=== PATIENT | male | born 1980 | race Caucasian/White ===

== ENCOUNTER 2024-08-29 10:30 | Inpatient (IN) ==
[2024-08-29 12:07] LABS: Basophils # (auto) 0.04 K/uL (0.00-0.20); Basophils % (auto) 0.4 %; Eosinophils % (auto) 1.1 %; Hematocrit (blood only) 43.3 % (42.0-52.0); Hemoglobin 14.7 g/dl (14.0-18.0); Immature Granulocytes # (auto) 0.05 K/uL (0.01-0.20); Immature Granulocytes % (auto) 0.5 %; Lymphocytes # (auto) 1.01 K/uL (1.20-3.40); Lymphocytes % (auto) 10.6 %; Mean Corpuscular Hemoglobin 28.5 pg (25.0-34.0); Mean Corpuscular Hgb Conc 33.9 g/dL (32.0-36.0); Mean Corpuscular Volume 84.1 fL (80.0-100.0); Mean Platelet Volume 9.9 fL (9.4-12.4); Monocytes % (auto) 9.5 %; Neutrophils # (auto) 7.41 K/uL (1.40-6.50); Neutrophils % (auto) 77.9 %; Platelet Count 362 K/uL (130-400); RDW Coefficient of Variation 13.2 % (11.5-14.5); RDW Standard Deviation 40.8 fL (36.4-46.3); Red Blood Count 5.15 M/uL (4.70-6.10); White Blood Count 9.51 K/ul (4.8-10.8)
[2024-08-29 12:28] LABS: Albumin Globulin Ratio 1.3 (0.9-2); Albumin Level 4.2 gm/dl (3.4-5.0); BUN Creatinine Ratio 9.1 (10-20); Bilirubin,Total 0.7 mg/dl (0.2-1.0); Calcium 9.6 mg/dl (8.6-10.3); Creatinine Clr Calc Pharmacy 84.4 ml/min; Globulin 3.2 gm/dl (2.5-4.0); Potassium 3.9 mmol/L (3.5-5.1); Total Protein 7.4 gm/dl (6.0-8.3)
[2024-08-29 12:48] LABS: Appearance Urine Clear (Clear); Bacteria Urine Automated None Seen (None Seen); Bilirubin Urine Negative (Negative); Blood Urine Negative (Negative); Cast Urine Automated 0-2 /lpf (0-2); Color Urine Yellow; Epithelial Cell Urine Auto 0-2 /hpf (0-2); Glucose Urine UA Negative (Negative); Ketones Urine Trace (Negative); Leukocyte Esterase Urine Negative (Negative); Nitrite Urine Negative (Negative); Protein Urine Trace (Negative); RBC Urine Automated 0-2 /hpf (0-2); Specific Gravity Urine 1.019 (1.000-1.030); Urobilinogen Urine Positive (Negative); WBC Urine Automated 0-5 /hpf (0-5)
--- NOTE | 2024-08-29 12:50 | Emergency Department Note ---
Impression & Plan Acute diverticulitis, Pneumoperitoneum ED Provider Note NAME: LAURENCE TELLEZ AGE: 44 SEX: M : 1980 ARRIVES VIA: Walk-In INFORMANT: Patient ED PROVIDER(S): Al Tomas DO CHIEF COMPLAINT: Lower abdominal pain HPI: Patient is a 44-year-old male who presents to the ER for lower abdominal pain. He notes this started this past Wednesday. Pain is worse with any kind of movement. He does have nausea. Denies any vomiting or diarrhea. He has pain when he pushes to urinate but otherwise no dysuria, urgency, or frequency. No previous abdominal surgeries. He has never had this before. Denies any headache or change in vision. No chest pain or shortness of breath. No fevers. ADDITIONAL HISTORY OBTAINED: Per HPI Chronic Medical/Social Conditions Affecting Care: Per HPI PAST MEDICAL HISTORY:See Below PAST SURGICAL HISTORY:See Below FAMILY HISTORY:See Below SOCIAL HISTORY:See Below HOME MEDICATIONS:See Below ALLERGIES:See Below VITALS:See Below PHYSICAL EXAMINATION: GENERAL: Sitting up in bed, alert, well appearing, well nourished, no distress, non-toxic EYE EXAM: normal conjunctiva. PERRL and EOM's grossly intact. OROPHARYNX: no exudate, no erythema, lips, buccal mucosa, and tongue normal and mucous membranes are moist NECK: supple, no nuchal rigidity, no adenopathy, non-tender LUNGS: Clear to auscultation. Normal chest wall mechanics HEART: no murmurs, S1 normal and S2 normal ABDOMEN: abdomen soft, tender palpation right lower quadrant, normo-active bowel sounds, no masses, no rebound or guarding. UPPER EXTREMITIES: upper extremities are grossly normal. LOWER EXTREMITIES: No pitting edema. NEURO EXAM: Normal sensorium, cranial nerves II-XII grossly intact, normal speech, no gross weakness of arms, no gross weakness of legs. No drift. Finger to nose intact. Gross sensation intact. MEDICAL DECISION MAKING: Patient is a 44-year-old male who presents ER for above-stated complaint. IV was established and blood work was obtained. Labs show no significant leukocytosis or anemia. BMP along with LFTs bilirubin lipase was unremarkable. UA was clean. CT abdomen pelvis showed diverticulitis with pneumoperitoneum and a stone in the cystic duct. Patient was given IV Zosyn fluids morphine and Toradol. He was updated bedside. Discussed with Libia from general surgery and she recommended admission to the hospitalist. Discussed with the hospitalist for further evaluation management treatment. Consults/Care Managements Discussions: Per MDM Triage Nursing notes reviewed. Limited review of prior medical records performed Vital Signs: reviewed and remarkable for no significant abnormalities Differential diagnosis: Differential diagnoses includes but is not limited to gastritis, peptic ulcer disease, GERD, gallbladder disease, pancreatitis, small bowel obstruction, appendicitis, diverticulitis, hernia, urinary tract infection, torsion, perforation, trauma, infectious. ER treatment provided: See below Diagnostics interpreted by me include EKG and cardiac monitoring as listed below: -Cardiac Monitoring: An order was placed for continuous cardiac monitoring. The monitor shows a rate of 97 with sinus rhythm. -ECG: none -Laboratory studies:Interpreted by me as stated above in MDM and shown below. Imaging studies: Xrays: As interpreted by me:none CTs show: CT abdomen pelvis shows inflammation in the lower pelvis per my preliminary interpretation CT of the pelvis per radiology as described above Procedures:none Critical Care: None Past Med/Surg History Problem List (Updated 08/29/24 @ 18:50 by Al Tomas DO) Pneumoperitoneum (Acute) Right nephrolithiasis Cystic duct calculus Diverticulitis of colon with perforation Acute diverticulitis (Acute) Medical History Hypertension Social History Smoking Status: Never smoker Preferred Language: Armenian Feels Safe at Home: Yes Allergies Allergies Allergy/AdvReac Type Severity Reaction Status Date / Time No Known Allergies AdvReac Unknown Verified 12/11/20 23:52 Home Meds Home Medications Medication Instructions Recorded Confirmed Lactobacillus acidophilus 10 10,000 mmu cells PO DAILY 12/11/20 08/29/24 billion cell capsule (Probiotic) aspirin 325 mg tablet,delayed 325 mg PO DAILY PRN Pain 12/11/20 08/29/24 release cholecalciferol (vitamin D3) 25 1,000 unit PO DAILY 12/11/20 08/29/24 mcg (1,000 unit) capsule (Vitamin D3) omeprazole magnesium 20 mg 20 mg PO DAILY 12/11/20 08/29/24 tablet,delayed release (Prilosec OTC) hydrochlorothiazide 25 mg tablet 25 mg PO DAILY 08/29/24 08/29/24 losartan 100 mg tablet 100 mg PO DAILY 08/29/24 08/29/24 metoprolol succinate 25 mg 25 mg PO DAILY 08/29/24 08/29/24 tablet,extended release 24 hr Results & Data (ED) Vital Signs Vital Signs - 24 hr 08/29/24 10:37 08/29/24 13:02 Temperature 37.0 C Temperature Source Temporal Artery Scan Pulse Rate 80 73 Respiratory Rate 18 16 Respiratory Effort / Characteristics Non-Labored Spontaneous Respiratory Depth Normal Blood Pressure 151/91 H 148/82 H Blood Pressure Mean 111 104 Pulse Oximetry 98 95 Oxygen Delivery Method Room Air Room Air Sepsis Recent Fever Within 48 Hours No Sepsis New/Unexplained Change in Mental Status N/A Sepsis Action Taken by Nursing No Action Required Laboratory Data 08/29/24 11:13 08/29/24 11:13 Lab Results 08/29/24 08/29/24 Range/Units 11:13 12:17 WBC 9.51 (4.8-10.8) K/ul RBC 5.15 (4.70-6.10) M/uL Hgb 14.7 (14.0-18.0) g/dl Hct 43.3 (42.0-52.0) % MCV 84.1 (80.0-100.0) fL MCH 28.5 (25.0-34.0) pg MCHC 33.9 (32.0-36.0) g/dL RDW Std Deviation 40.8 (36.4-46.3) fL RDW Coeff of Gomez 13.2 (11.5-14.5) % Plt Count 362 (130-400) K/uL MPV 9.9 (9.4-12.4) fL Immature Gran % (Auto) 0.5 % Neut % (Auto) 77.9 % Lymph % (Auto) 10.6 % [place] % (Auto) 9.5 % Eos % (Auto) 1.1 % Baso % (Auto) 0.4 % Neut # (Auto) 7.41 H (1.40-6.50) K/uL Lymph # (Auto) 1.01 L (1.20-3.40) K/uL [place] # (Auto) 0.90 H (0.11-0.59) K/uL Eos # (Auto) 0.10 (0.00-0.50) K/uL Baso # (Auto) 0.04 (0.00-0.20) K/uL Immature Gran # (Auto) 0.05 (0.01-0.20) K/uL Sodium 136 (136-145) mmol/L Potassium 3.9 (3.5-5.1) mmol/L Chloride 99 (98-107) mmol/L Carbon Dioxide 30 (21-32) mmol/L Anion Gap 7 (3-11) BUN 10 (6-23) mg/dl Creatinine 1.10 (0.6-1.4) mg/dl Est Cr Clr Drug Dosing 84.4 ml/min eGFR 85.42 BUN/Creatinine Ratio 9.1 L (10-20) Glucose 99 (70-99(Fasting)) mg/dl Calcium 9.6 (8.6-10.3) mg/dl Total Bilirubin 0.7 (0.2-1.0) mg/dl AST 13 (13-39) U/L ALT 21 (7-52) U/L Alkaline Phosphatase 66 (34-104) U/L Total Protein 7.4 (6.0-8.3) gm/dl Albumin 4.2 (3.4-5.0) gm/dl Globulin 3.2 (2.5-4.0) gm/dl Albumin/Globulin Ratio 1.3 (0.9-2) Lipase 18 (11-82) U/L Urine Color Yellow Urine Appearance Clear (Clear) Urine pH 6.0 (4.5-7.5) Ur Specific Owen 1.019 (1.000-1.030) Urine Protein Trace H (Negative) Urine Glucose (UA) Negative (Negative) Urine Ketones Trace H (Negative) Urine Blood Negative (Negative) Urine Nitrite Negative (Negative) Urine Bilirubin Negative (Negative) Urine Urobilinogen Positive H (Negative) Ur Leukocyte Esterase Negative (Negative) Urine WBC (Auto) 0-5 (0-5) /hpf Urine RBC (Auto) 0-2 (0-2) /hpf U Hyaline Cast (Auto) 0-2 (0-2) /lpf U Epithel Cells (Auto) 0-2 (0-2) /hpf Urine Bacteria (Auto) None Seen (None Seen) Administered Medications Dextrose/Lactated Ringer's (D5w And Lactated Ringers) 1,000 mls @ 80 mls/hr IV .[id number] KEITH Stop: 08/30/24 18:08 Last Admin: 08/29/24 18:41 Dose: 80 mls/hr Documented By: FREDY Discontinued Medications Sodium Chloride (Nss) 1,000 mls @ 999 mls/hr IV .[id number] ONE Stop: 08/29/24 13:47 Last Infusion: 08/29/24 14:01 Dose: Infused Documented By: Admin: 08/29/24 12:56 Dose: 999 mls/hr Documented By: ANT Piperacillin Sod/Tazobactam Sod (Zosyn) 4.5 gm in 100 mls @ 200 mls/hr IV NOW ONE; Protocol Stop: 08/29/24 14:46 Last Infusion: 08/29/24 15:55 Dose: Infused Documented By: Admin: 08/29/24 14:30 Dose: 200 mls/hr Documented By: DINORA Ioversol (Optiray 320 100ml) 94 ml IV ONCE ONE Stop: 08/29/24 13:39 Last Admin: 08/29/24 13:39 Dose: 94 ml Documented By: IZZY Ketorolac Tromethamine (Ketorolac Tromethamine 15 Mg/Ml Vial) 10 mg IV NOW ONE Stop: 08/29/24 12:48 Last Admin: 08/29/24 12:56 Dose: 10 mg Documented By: ANT Morphine Sulfate (Morphine Sulfate 4 Mg/Ml 1 Ml Carp\Vial) 4 mg IV NOW STA Stop: 08/29/24 14:18 Last Admin: 08/29/24 14:50 Dose: Not Given Documented By: ANT Morphine Sulfate (Morphine Sulfate 4 Mg/Ml 1 Ml Carp\Vial) 4 mg IV NOW STA Stop: 08/29/24 15:24 Last Admin: 08/29/24 15:52 Dose: 4 mg Documented By: FREDY Ondansetron HCl (Ondansetron Inj 2 Mg/Ml 2 Ml Vial) 4 mg IV NOW STA Stop: 08/29/24 12:48 Last Admin: 08/29/24 12:56 Dose: 4 mg Documented By: JORJE Imaging Data Radiologist's Impression: Abdomen/Pelvis CT 08/29/24 12:[address] WITH IV CONTRAST CT DOSE: 925.75 mGy.cm HISTORY: Acute nausea with right lower quadrant abdominal pain rlq abd pain TECHNIQUE: Multiaxial CT images of the abdomen and pelvis were performed following the IV administration of 94 cc of Optiray, A dose lowering technique was utilized adhering to the principles of ALARA. COMPARISON STUDY: None. FINDINGS: Mild bibasilar atelectasis. Unremarkable spleen, pancreas and left adrenal gland. Indeterminate 1.5 cm soft tissue attenuating focus of right adrenal gland nodular thickening on image 70 series 3, favored to be benign. There is mild gallbladder wall thickening without significant distention. Trace pericholecystic stranding. There is a 3 mm stone within the cystic duct on image 79 series 3. No choledocholithiasis or significant biliary ductal dilation identified. Unremarkable liver. Subcentimeter hypodense focus of the left hepatic lobe on image 49 series 3 is too small to characterize, likely benign. Patent portal vein. Mild nonspecific bilateral perinephric stranding with pelvocaliectasis which is generally symmetric. There are a few scattered bilateral renal cysts. 4 mm nonobstructing calculus of the interpolar right kidney. No ureteral calculi. Decompressed bladder with wall thickening. Borderline enlarged prostate. Aorta and IVC are unremarkable. No lymphadenopathy. No bowel obstruction. Colonic diverticulosis. There is moderate wall thickening of the mid sigmoid with adjacent inflammatory stranding and a cluster of pneumoperitoneum within the sigmoid mesocolon on image 257 series 3. No discrete abscess identified. Mild wall thickening is noted involving a few loops of adjacent nondilated ileum which is likely reactive. Normal appendix. No acute fracture. IMPRESSION: 1. Acute sigmoid diverticulitis with microperforation manifested by clustered pneumoperitoneum within the adjacent sigmoid mesocolon. No upper abdominal pneumoperitoneum. 2. No bowel obstruction or abscess. 3. 3 mm stone within the cystic duct is noted along with mild gallbladder wall thickening. Finding should be correlated clinically to exclude developing acute cholecystitis. 4. Normal appendix. 5. Right nephrolithiasis. ACT 112: Negative or not required by law. The above report was generated using voice recognition software. It may contain grammatical, syntax or spelling errors. Electronically signed by: Teddy Griffin M.D. 08/29/2024 1:59 PM Discharge Plan Visit Data Chief Complaint: Abdominal Pain Stated Complaint: LOWER ABD PAIN ED Provider: Al Tomas Discharge Problem: Acute diverticulitis, Pneumoperitoneum Patient Disposition: Admitted As Inpatient Discharge Instructions Interventions: ED Discharge Assessment Last Done: 08/29/24 17:24
[2024-08-29] MEDS: SODIUM CHLORIDE 0.9% 1,000 ML IV ONE (12:56)
[2024-08-29] MEDS: KETOROLAC TROMETHAMINE 15 MG/ML VIAL IV ONE (12:56)
[2024-08-29] MEDS: ONDANSETRON INJ 2 MG/ML 2 ML VIAL IV STA (12:56)
[2024-08-29] MEDS: OPTIRAY 320 100ml IV ONE (13:39)
--- NOTE | 2024-08-29 14:00 | CT Scan Report ---
ABDOMEN AND PELVIS CT WITH IV CONTRAST CT DOSE: 925.75 mGy.cm HISTORY: Acute nausea with right lower quadrant abdominal pain rlq abd pain TECHNIQUE: Multiaxial CT images of the abdomen and pelvis were performed following the IV administrat ion of 94 cc of Optiray, A dose lowering technique was utilized adhering to the principles of ALARA. COMPARISON STUDY: None. FINDINGS: Mild bibasilar atelectasis. Unremarkable spleen, pancreas and left adrenal gland. Indetermi [place] 1.5 cm soft tissue attenuating focus of right adrenal gland nodular thickening on image 70 serie s 3, favored to be benign. There is mild gallbladder wall thickening without significant distention. Trace pericholecystic stranding. There is a 3 mm stone within the cystic duct on image 79 series 3. N o choledocholithiasis or significant biliary ductal dilation identified. Unremarkable liver. Subcenti meter hypodense focus of the left hepatic lobe on image 49 series 3 is too small to characterize, lik romeo benign. Patent portal vein. Mild nonspecific bilateral perinephric stranding with pelvocaliectasis which is generally symmetric. There are a few scattered bilateral renal cysts. 4 mm nonobstructing calculus of the interpolar right kidney. No ureteral calculi. Decompressed bladder with wall thickening. Borderline enlarged prostate . Aorta and IVC are unremarkable. No lymphadenopathy. No bowel obstruction. Colonic diverticulosis. The re is moderate wall thickening of the mid sigmoid with adjacent inflammatory stranding and a cluster of pneumoperitoneum within the sigmoid mesocolon on image 257 series 3. No discrete abscess identifie d. Mild wall thickening is noted involving a few loops of adjacent nondilated ileum which is likely r eactive. Normal appendix. No acute fracture. IMPRESSION: 1. Acute sigmoid diverticulitis with microperforation manifested by clustered pneumoperitoneum within the adjacent sigmoid mesocolon. No upper abdominal pneumoperitoneum. 2. No bowel obstruction or abscess. 3. 3 mm stone within the cystic duct is noted along with mild gallbladder wall thickening. Finding sh ould be correlated clinically to exclude developing acute cholecystitis. 4. Normal appendix. 5. Right nephrolithiasis. ACT 112: Negative or not required by law. The above report was generated using voice recognition software. It may contain grammatical, syntax o r spelling errors. Electronically signed by: Teddy Griffin M.D. 08/29/2024 1:59 PM
[2024-08-29] MEDS: PIPERACILLIN/TAZOBACTAM 4.5 GM/100 ML BAG IV ONE (14:30)
[2024-08-29] MEDS: MoRPHine SULFATE 4 MG/ML 1 ML CARP\\VIAL IV STA ×2 (14:50→15:52)
--- NOTE | 2024-08-29 15:24 | Surgery Consultation ---
Date of Consultation August 29, 2024 Assessment & Plan (1) Acute diverticulitis: This is a 44yM with a PMH of HTN who presents to the [facility] ED on 08/29/24 with complaints of lower abdominal pain since Wednesday associated with nausea and chills. As his pain has been ongoing he presented to the ER for further kimmy luation. A CT a/p was obtained that revealed findings concerning for acute sigmoid diverticulitis with microperforation manifested by clustered pneumoperitoneum within the adjacent sigmoid mesocolon, without abscess or bowel obstruction. He also has a 3mm stone within the cystic duct is noted along with mild gallbladder wall thickening. He has never had surgery on the abdomen nor a colonoscopy. Labs show a WBC 9.5, Hbg 14.7, K 3.9, Cr 1.1, with normal LFT markers. Vital signs are stable with HRs 70-80s, stable blood pressures, and afebrile. On exam abdomen is distended with tenderness to palpation across the bilateral lower abdomen, worse in the supra-pubic region with some voluntary guarding. He has no RUQ pain currently. Given reassuring WBC and vitals we will give patient a trial of supportive care with IVF, bowel rest, and start IV abx. Discussed should patient worsen we could consider repeat CT scan to evaluate for developing abscess. He is understanding surgical intervention if it came to it would likely involve a temporary colostomy. Patient agreeable with plan for conservative measures, hospitalist planning on admitting, we will follow closely. History of Present Illness History of Present Illness This is a 44yM with a PMH of HTN who presents to the [facility] ED on 08/29/24 with complaints of abdominal pain. His pain started Wednesday and has not improved prompting him to come in. It is located in the lower midline. He thought maybe this initially was a kidney stone, because he has had them in the past, but this presented with back pain which this episode is no associated with. His pain at it's worst is a 7-8/10 associated with nausea and chills. As his pain has been ongoing he presented to the ER for further evaluation. A CT a/p was obtained that revealed findings concerning for acute sigmoid diverticulitis with microperforation manifested by clustered pneumoperitoneum within the adjacent sigmoid mesocolon, without abscess or bowel obstruction. He also has a 3mm stone within the cystic duct is noted along with mild gallbladder wall thickening. The patient denies any history of diverticulitis in the past. He says his mom has had issues and bowel issues similar to this, but no history of colon cancer. He has never had surgery on the abdomen nor a colonoscopy. Patient reports a soft BM yesterday without blood. No urinary complaints. No vomiting, chest pain, SOB. He had some gatorade prior to coming in. Allergies Allergy/AdvReac Type Severity Reaction Status Date / Time No Known Allergies AdvReac Unknown Verified 12/11/20 23:52 Home Medications Medication Instructions Recorded Confirmed Type Lactobacillus acidophilus 10 10,000 mmu cells PO DAILY 12/11/20 08/29/24 History billion cell capsule (Probiotic) aspirin 325 mg tablet,delayed 325 mg PO DAILY PRN Pain 12/11/20 08/29/24 History release cholecalciferol (vitamin D3) 25 1,000 unit PO DAILY 12/11/20 08/29/24 History mcg (1,000 unit) capsule (Vitamin D3) omeprazole magnesium 20 mg 20 mg PO DAILY 12/11/20 08/29/24 History tablet,delayed release (Prilosec OTC) hydrochlorothiazide 25 mg tablet 25 mg PO DAILY 08/29/24 08/29/24 History losartan 100 mg tablet 100 mg PO DAILY 08/29/24 08/29/24 History metoprolol succinate 25 mg 25 mg PO DAILY 08/29/24 08/29/24 History tablet,extended release 24 hr Patient History Medical History Hypertension Social History Smoking Status: Never smoker Preferred Language: Tamaz[place] Feels Safe at Home: Yes Review of Systems Constitutional: + chills; no fever Respiratory: no cough Cardiovascular: no chest pain Gastrointestinal: + abdominal pain (supra pubic ), + bloat ing and + nausea; no vomiting and no blood in stools Physical Exam Physical Exam: awake/alert Constitutional: well developed and well nourished Respiratory: normal respiratory effort Gastrointestinal (Abdomen): Inspection/Auscultation: + abdomen distended Percussion/Palpation: + abdomen tender (tender to palpation in the b/l lower abd worse in the lilli-pubic region) and + guarding (voluntary guarding ) Results & Data Vital Signs (Past 12 Hours) Vital Signs Temp Pulse Resp BP Pulse Ox O2 Del Method 08/29/24 13:02 73 16 148/82 H 95 Room Air 08/29/24 10:37 98.6 F 80 18 151/91 H 98 Room Air Diagnostic Findings ABDOMEN AND PELVIS CT WITH IV CONTRAST CT DOSE: 925.75 mGy.cm HISTORY: Acute nausea with right lower quadrant abdominal pain rlq abd pain TECHNIQUE: Multiaxial CT images of the abdomen and pelvis were performed following the IV administration of 94 cc of Optiray, A dose lowering technique was utilized adhering to the principles of ALARA. COMPARISON STUDY: None. FINDINGS: Mild bibasilar atelectasis. Unremarkable spleen, pancreas and left adr enal gland. Indeterminate 1.5 cm soft tissue attenuating focus of right adrenal gland nodular thickening on image 70 series 3, favored to be benign. There is mild gallbladder wall thickening without significant distention. Trace pericholecystic stranding. There is a 3 mm stone within the cystic duct on image 79 series 3. No choledocholithiasis or significant biliary ductal dilation identified. Unremarkable liver. Subcentimeter hypodense focus of the left hepatic lobe on image 49 series 3 is too small to characterize, likely benign. Patent portal vein. Mild nonspecific bilateral perinephric stranding with pelvocaliectasis which is generally symmetric. There are a few scattered bilateral renal cysts. 4 mm nonobstructing calculus of the interpolar right kidney. No ureteral calculi. Decompressed bladder with wall thickening. Borderline enlarged prostate. Aorta and IVC are unremarkable. No lymphadenopathy. No bowel obstruction. Colonic diverticulosis. There is moderate wall thickening of the mid sigmoid with adjacent inflammatory stranding and a cluster of pneumoperitoneum within the sigmoid mesocolon on image 257 series 3. No discrete abscess identified. Mild wall thickening is noted involving a few loops of adjacent nondilated ileum which is likely reactive. Normal appendix. No acute fracture. IMPRESSION: 1. Acute sigmoid diverticulitis with microperforation manifested by clustered pneumoperitoneum within the adjacent sigmoid mesocolon. No upper abdominal pneumoperitoneum. 2. No bowel obstruction or abscess. 3. 3 mm stone within the cystic duct is noted along with mild gallbladder wall thickening. Finding should be correlated clinically to exclude developing acute cholecystitis. 4. Normal appendix. 5. Right nephrolithiasis. ACT 112: Negative or not required by law. The above report was generated using voice recognition software. It may contain grammatical, syntax or spelling errors. Electronically signed by: Teddy Griffin M.D. 08/29/2024 1:59 PM PG Care Time/CCT Total # of Minutes Spent Total Time Spent with Patient: Total time spent is greater than 50% in coordination of care (as documented) at patient's floor/unit and/or counseling patient: Coding Level of Care Code 38726 IN/OBS CONSULT LVL 3,45M Diagnoses Acute diverticulitis K57.92
--- NOTE | 2024-08-29 15:35 | History & Physical Report ---
Date of Service August 29, 2024 Assessment & Plan (1) Diverticulitis of colon with perforation: (2) Cystic duct calculus: (3) Right nephrolithiasis: (4) Hypertension: Plan Patient is a 44-year-old gentleman presents with acute sigmoid diverticulitis with microperforation. Patient is at high risk for further decompensation and worsening of his condition without hospital level care and interventions. Patient requires IV fluids, antibiotics and surgical consultation Admit to the MedSurg unit Continue IV fluids IV antibiotics Surgical consultation Continue home outpatient medications as ordered Continue to monitor symptoms related to cystic duct stone, he may pass on his. History of Present Illness Chief Complaint: Abdominal pain Primary Care Provider: Art Baum MD Patient is a 44-year-old gentleman with previous history of diverticulosis and kidney stones. Presents to the emergency room with abdominal pain for the past 3 to 4 days. In the emergency room imaging was remarkable for diverticulitis with microperforation. Patient was referred to our service for further evaluation. Time my evaluation patient states he is starting to feel uncomfortable has not requested pain medicines prior to now but would appreciate some. He he states that he started noticing a sort of a more dull and aching abdominal pain on Wednesday. This is different than his usual pain he is experienced with kidney stones in the past. Seem to kind of progress throughout the weekend and into Wednesday prompting him to seek attention today. Denies any fever or chills. No chest pain or shortness of breath. No nausea or vomiting. No bloody stools. No changes in his bladder habits. No swelling of hands arms legs or feet. He states that he has never had a colonoscopy. However, he was told he has diverticulosis based on previous CT of his abdomen. He is compliant with his blood pressure medications. Does not smoke. Rarely uses alcohol. States his mother has a history of diverticulosis and diverticulitis. Allergies Allergy/AdvReac Type Severity Reaction Status Date / Time No Known Allergies AdvReac Unknown Verified 12/11/20 23:52 Home Medications Medication Instructions Recorded Confirmed Type Lactobacillus acidophilus 10 10,000 mmu cells PO DAILY 12/11/20 08/29/24 History billion cell capsule (Probiotic) aspirin 325 mg tablet,delayed 325 mg PO DAILY PRN Pain 12/11/20 08/29/24 History release cholecalciferol (vitamin D3) 25 1,000 unit PO DAILY 12/11/20 08/29/24 History mcg (1,000 unit) capsule (Vitamin D3) omeprazole magnesium 20 mg 20 mg PO DAILY 12/11/20 08/29/24 History tablet,delayed release (Prilosec OTC) hydrochlorothiazide 25 mg tablet 25 mg PO DAILY 08/29/24 08/29/24 History losartan 100 mg tablet 100 mg PO DAILY 08/29/24 08/29/24 History metoprolol succinate 25 mg 25 mg PO DAILY 08/29/24 08/29/24 History tablet,extended release 24 hr Past Med/Surg History Problem List (Updated 08/29/24 @ 15:34 by Derik Diaz DO) Right nephrolithiasis Cystic duct calculus Diverticulitis of colon with perforation Acute diverticulitis Medical History Hypertension Social History Smoking Status: Never smoker Preferred Language: Spanish Feels Safe at Home: Yes Review of Systems Review of Systems: Pertinent positive and negative review of systems as mentioned in the HPI Physical Exam Physical Exam: Constitutional: Alert, ill in appearance, nontoxic HEENT: Mucous membranes moist. Sclera clear Neck: Soft, no adenopathy Lungs: Clear to auscultation, decreased, no wheezes rales or rhonchi CV: S1-S2, regular Abdomen: Firm, diffuse tenderness left lower quadrant the greatest tenderness with some guarding, some rebound Extremities: No significant edema Musculoskeletal: No significant joint tenderness Neuro: No focal deficits Psych: Cooperative, normal mood Results & Data Results & Data Vital Signs (Past 12 Hours) Vital Signs Temp Pulse Resp BP Pulse Ox O2 Del Method 08/29/24 13:02 73 16 148/82 H 95 Room Air 08/29/24 10:37 37.0 C 80 18 151/91 H 98 Room Air Diagnostic Findings Reviewed imaging, laboratory and diagnostic studies. Pertinent findings as below. CBC within normal ranges Electrolytes within normal ranges Creatinine 1.1 LFTs are within normal ranges Urinalysis unremarkable CT of the abdomen and pelvis shows acute sigmoid diverticulitis with microperforation and some clustered pneumoperitoneum, no definitive abscess, 3 mm stone in the cystic duct, Right nephrolithiasis
[2024-08-29] MEDS ORDERED: ALUMINUM/MAGNESIUM SUSP 30 ML UDC PO PRN (18:09)
[2024-08-29] MEDS: D5W AND LACTATED RINGERS 1,000 ML IV SCH (18:41)
[2024-08-29] MEDS: PIPERACILLIN/TAZOBACTAM 4.5 GM/100 ML BAG IV SCH (20:31)
[2024-08-29] MEDS: ACETAMINOPHEN 325 MG TAB PO PRN (20:40)
[2024-08-29] MEDS: IBUPROFEN 600 MG TAB PO PRN (21:44)
[2024-08-30 07:18] LABS: Albumin Level 3.5 gm/dl (3.4-5.0); BUN Creatinine Ratio 10.5 (10-20); Bilirubin Direct 0.7 mg/dl (0-0.2); Bilirubin,Total 1.9 mg/dl (0.2-1.0); Calcium 8.9 mg/dl (8.6-10.3); Creatinine Clr Calc Pharmacy 81.4 ml/min; Magnesium 1.9 mg/dl (1.7-2.4); Potassium 4.2 mmol/L (3.5-5.1); Total Protein 6.3 gm/dl (6.0-8.3)
[2024-08-30] MEDS: PANTOprazole 40 MG TAB PO SCH (08:19)
[2024-08-30] MEDS: ADVANCED PROBIOTIC 625 MG CAPSULE PO SCH (08:19)
[2024-08-30] MEDS: LOSARTAN POTASSIUM 50 MG TAB PO SCH (08:19)
[2024-08-30] MEDS: METOPROLOL SUCC 25MG EXT REL TAB PO SCH (08:20)
[2024-08-30 09:03] LABS: Hematocrit (blood only) 39.6 % (42.0-52.0); Hemoglobin 13.6 g/dl (14.0-18.0); Mean Corpuscular Hemoglobin 28.9 pg (25.0-34.0); Mean Corpuscular Hgb Conc 34.3 g/dL (32.0-36.0); Mean Corpuscular Volume 84.1 fL (80.0-100.0); Mean Platelet Volume 9.8 fL (9.4-12.4); Platelet Count 305 K/uL (130-400); RDW Coefficient of Variation 13.2 % (11.5-14.5); Red Blood Count 4.71 M/uL (4.70-6.10); White Blood Count 13.67 K/ul (4.8-10.8)
[2024-08-30 09:33] LABS: Basophils # (auto) 0.05 K/uL (0.00-0.20); Basophils % (auto) 0.4 %; Eosinophils # (auto) 0.02 K/uL (0.00-0.50); Eosinophils % (auto) 0.1 %; Immature Granulocytes % (auto) 0.7 %; Lymphocytes # (auto) 0.27 K/uL (1.20-3.40); Monocytes # (auto) 0.55 K/uL (0.11-0.59); Neutrophils # (auto) 12.68 K/uL (1.40-6.50); Neutrophils % (auto) 92.8 %
--- NOTE | 2024-08-30 10:23 | Surgery Progress Note ---
Date of Service August 30, 2024 Assessment & Plan (1) Diverticulitis of colon with perforation: Plan: No urgent or emergent indication for surgical intervention He did have fevers and his white count went up slightly but this is not unexpected. Clinically he is slightly improved Continue n.p.o./IV fluids/supportive care Recheck WBC tomorrow Will continue to follow along closely Admission and Anticipated Discharge Date Admission Date: August 29, 2024 Subjective Patient seen. Yesterday afternoon and evening he was feeling rather poorly but this morning he is seeing some improvement. He states that he has felt better ever since his fever broke. No pain if he is not moving. Physical Exam Constitutional: WD/WN, vitals as above no acute distress and not ill appearing Eyes: PERRL, conjunctivae normal, anicteric sclerae EOM intact bilaterally ENMT: external ear and nose normal, oropharynx normal Ears: no hearing impairment Neck: trachea midline, no thyromegaly Respiratory: normal respiratory effort; no respiratory distress and does not use accessory muscles Cardiovascular: Rate/Rhythm: regular rate and regular rhythm Gastrointestinal (Abdomen): Soft. Positive tenderness primarily in the suprapubic and left lower quadrant regions. Skin: no rashes, warm and dry Psychiatric: Orientation: alert, oriented x 3 and cooperative Results & Data Vital Signs (Past 12 Hours) Vital Signs Temp Pulse Resp BP Pulse Ox O2 Del Method 08/30/24 08:00 80 15 114/68 96 Room Air 08/30/24 05:39 37.3 C 84 16 132/76 96 Room Air 08/30/24 01:00 82 16 101/68 96 Room Air 08/29/24 23:00 75 16 114/61 94 Room Air 08/29/24 22:49 37.7 C H PG Care Time/CCT Total # of Minutes Spent Total Time Spent with Patient: Total time spent is greater than 50% in coordination of care (as documented) at patient's floor/unit and/or counseling patient: Coding Level of Care Code 60389 SUB INP/OBS CARE 235MIN Diagnoses Diverticulitis of colon with perforation K57.20
--- NOTE | 2024-08-30 13:53 | Hospitalist Progress Note ---
Date of Service August 30, 2024 Assessment & Plan (1) Diverticulitis of colon with perforation: (2) Cystic duct calculus: (3) Right nephrolithiasis: (4) Hypertension: Plan Patient with acute diverticulitis with microperforation. Seems to be improving, not surprising WBC slightly increased. Will continue to monitor Continue Zosyn Continue n.p.o. with ice chips and sips with meds only Monitor laboratory studies Surgery evaluation and recommendations noted at bedside updated as well. Admission and Anticipated Discharge Date Admission Date: August 29, 2024 Subjective Patient had fever overnight. Now feeling improved did not need any more morphine. Feels some increased pain when he has to urinate. Is passing flatus Physical Exam Physical Exam: Constitutional: Alert, nontoxic HEENT: Mucous membranes moist. Lungs: Clear to auscultation, decreased, no wheezes rales or rhonchi CV: S1-S2, regular Abdomen: Firm, slightly distended, hypoactive bowel sounds, diffuse tenderness more significant in the left lower quadrant with some guarding Extremities: No significant edema Neuro: No focal deficits Psych: Cooperative, normal mood Results & Data Results & Data Vital Signs (Past 12 Hours) Vital Signs Temp Pulse Resp BP Pulse Ox O2 Del Method 08/30/24 12:01 37 C 75 18 123/78 97 Room Air 08/30/24 08:00 80 15 114/68 96 Room Air 08/30/24 05:39 37.3 C 84 16 132/76 96 Room Air Diagnostic Findings Reviewed imaging, laboratory and diagnostic studies. Pertinent findings as below. WBCs 13.6, slightly increased Electrolytes stable
[2024-08-31 06:54] LABS: Basophils # (auto) 0.02 K/uL (0.00-0.20); Basophils % (auto) 0.3 %; Eosinophils # (auto) 0.03 K/uL (0.00-0.50); Eosinophils % (auto) 0.4 %; Hematocrit (blood only) 39.6 % (42.0-52.0); Hemoglobin 13.6 g/dl (14.0-18.0); Immature Granulocytes # (auto) 0.05 K/uL (0.01-0.20); Immature Granulocytes % (auto) 0.6 %; Lymphocytes # (auto) 0.57 K/uL (1.20-3.40); Lymphocytes % (auto) 7.2 %; Mean Corpuscular Hemoglobin 28.6 pg (25.0-34.0); Mean Corpuscular Hgb Conc 34.3 g/dL (32.0-36.0); Mean Corpuscular Volume 83.4 fL (80.0-100.0); Mean Platelet Volume 9.4 fL (9.4-12.4); Monocytes % (auto) 8.9 %; Neutrophils # (auto) 6.52 K/uL (1.40-6.50); Neutrophils % (auto) 82.6 %; Platelet Count 279 K/uL (130-400); RDW Coefficient of Variation 13.2 % (11.5-14.5); RDW Standard Deviation 39.9 fL (36.4-46.3); Red Blood Count 4.75 M/uL (4.70-6.10); White Blood Count 7.89 K/ul (4.8-10.8)
[2024-08-31 07:15] LABS: Albumin Level 3.3 gm/dl (3.4-5.0); BUN Creatinine Ratio 13.9 (10-20); Bilirubin Direct 0.5 mg/dl (0-0.2); Bilirubin,Total 1.3 mg/dl (0.2-1.0); Calcium 8.7 mg/dl (8.6-10.3); Total Protein 6.3 gm/dl (6.0-8.3)
--- NOTE | 2024-08-31 09:31 | Surgery Progress Note ---
Date of Service August 31, 2024 Assessment & Plan (1) Diverticulitis of colon with perforation: Plan: VSS wbc wnl Continue IV antibiotics Keep NPO with ice chips only for another day T.Bili down trending 1.3 (1.9) Pt seen and examined with Dr. Roa Will follow as above. continues to slowly improve. still some pain with full bladder continue IV antibiotics rec stay on just ice chips another day. possible advance to clears tomorrow no urgent indication for surgical intervention (2) Total bilirubin, elevated: Admission and Anticipated Discharge Date Admission Date: August 29, 2024 Subjective event of increased pain overnight prior to voiding then pain subsided after urination Denies air bubbles in urine stream no n/v, f/v Review of Systems Constitutional: no fever and no chills Respiratory: no dyspnea Cardiovascular: no chest pain Gastrointestinal: + abdominal pain; no nausea and no vomit ing Integumentary: no rash Psychiatric: no confusion Physical Exam Constitutional: cooperative and comfortable; no acute distress Respiratory: normal respiratory effort; no respiratory distress Cardiovascular: Rate/Rhythm: + bradycardic (58) Gastrointestinal (Abdomen): Inspection/Auscultation: abdomen not distended Percussion/Palpation: + abdomen tender Psychiatric: Orientation: alert and oriented x 3 Results & Data Vital Signs (Past 12 Hours) Vital Signs Temp Pulse Resp BP Pulse Ox O2 Del Method 08/31/24 08:13 98.4 F 58 L 15 167/92 H 96 Room Air Results CBC w Diff Results: RBC 4.75 M/uL (4.70-6.10) 08/31/24 WBC 7.89 K/ul (4.8-10.8) 08/31/24 Hgb 13.6 g/dl (14.0-18.0) L 08/31/24 Hct 39.6 % (42.0-52.0) L 08/31/24 MCV 83.4 fL (80.0-100.0) 08/31/24 MCH 28.6 pg (25.0-34.0) 08/31/24 MCHC 34.3 g/dL (32.0-36.0) 08/31/24 RDW Standard Deviation 39.9 fL (36.4-46.3) 08/31/24 RDW Coefficient of Variation 13.2 % (11.5-14.5) 08/31/24 Plt Count 279 K/uL (130-400) 08/31/24 MPV 9.4 fL (9.4-12.4) 08/31/24 Neutrophils (%) (Auto) 82.6 % 08/31/24 Lymphocytes (%) (Auto) 7.2 % 08/31/24 Monocytes # (Auto) 0.70 K/uL (0.11-0.59) H 08/31/24 Eosinophils # (Auto) 0.03 K/uL (0.00-0.50) 08/31/24 Immature Granulocyte % (Auto) 0.6 % 08/31/24 Neutrophils # (Auto) 6.52 K/uL (1.40-6.50) H 08/31/24 Lymphocytes # (Auto) 0.57 K/uL (1.20-3.40) L 08/31/24 Monocytes # (Auto) 0.70 K/uL (0.11-0.59) H 08/31/24 Eosinophils # (Auto) 0.03 K/uL (0.00-0.50) 08/31/24 Basophils # (Auto) 0.02 K/uL (0.00-0.20) 08/31/24 Immature Granulocyte # (Auto) 0.05 K/uL (0.01-0.20) 4 Results CMP Results: Sodium 137 mmol/L (136-145) 08/31/24 Potassium 4.0 mmol/L (3.5-5.1) 08/31/24 Chloride 104 mmol/L (98-107) 08/31/24 Carbon Dioxide 25 mmol/L (21-32) 08/31/24 Anion Gap 8 (3-11) 08/31/24 BUN 15 mg/dl (6-23) 08/31/24 Creatinine 1.08 mg/dl (0.6-1.4) 08/31/24 eGFR 87.32 08/31/24 Est GFR ( Amer) 104.3 12/11/20 Est GFR (Non-Af Amer) 90.0 12/11/20 BUN/Creatinine Ratio 13.9 (10-20) 08/31/24 Glucose 88 mg/dl (70-99(Fasting)) 08/31/24 Calcium 8.7 mg/dl (8.6-10.3) 08/31/24 Total Bilirubin 1.3 mg/dl (0.2-1.0) H 08/31/24 Direct Bilirubin 0.5 mg/dl (0-0.2) H 08/31/24 AST 18 U/L (13-39) 08/31/24 ALT 24 U/L (7-52) 08/31/24 Alkaline Phosphatase 67 U/L (34-104) 08/31/24 Total Protein 6.3 gm/dl (6.0-8.3) 08/31/24 Albumin 3.3 gm/dl (3.4-5.0) L 08/31/24 Globulin 3.2 gm/dl (2.5-4.0) 08/29/24 Albumin/Globulin Ratio 1.3 (0.9-2) 08/29/24 PG Care Time/CCT Total # of Minutes Spent Total Time Spent with Patient: Total time spent is greater than 50% in coordination of care (as documented) at patient's floor/unit and/or counseling patient: Coding Level of Care Code 34960 SUB INP/OBS CARE 10/21MIN Diagnoses Diverticulitis of colon with perforation K57.20 Total bilirubin, elevated R17
--- NOTE | 2024-08-31 16:03 | Hospitalist Progress Note ---
Date of Service August 31, 2024 Assessment & Plan (1) Diverticulitis of colon with perforation: (2) Cystic duct calculus: (3) Right nephrolithiasis: (4) Hypertension: Plan Patient is a 44-year-old male who presented to the hospital with lower abdominal pain. CT abdomen pelvis shows acute sigmoid diverticulitis with microperforation manifested by clustered pneumoperitoneum. No bowel obstruction/abscess. 3 mm cystic duct stone present. Leukocytosis present on admission; resolved. Total bilirubin of 1.3; direct of 0.5; AST/ALT and ALP within normal limits Surgery on board; recommend to continue IV antibiotics. Continue ice chips Continue IV fluids Pain control Discussed With patient regarding colonoscopy in 6 to 8 weeks; patient agreeable. Please note the above document was generated using voice recognition software. It may contain grammatical, syntax or spelling errors. Any formal questions or concerns about the content, text or information contained within the body of this dictation should be directly addressed to the provider for clarification Admission and Anticipated Discharge Date Admission Date: August 29, 2024 Subjective Patient seen and examined at bedside. He reports he had a bout of pain last evening; does not have pain at this time Afebrile and vitals remained stable. Review of Systems Review of Systems: All systems reviewed & are unremarkable except as noted in Subjective Physical Exam Physical Exam: Constitutional: Alert, nontoxic HEENT: Mucous membranes moist. Lungs: Clear to auscultation, decreased, no wheezes rales or rhonchi CV: S1-S2, regular Abdomen: Tenderness present in left lower quadrant Extremities: No significant edema Neuro: No focal deficits Psych: Cooperative, normal mood Results & Data Results & Data Vital Signs (Past 12 Hours) Vital Signs Temp Pulse Resp BP Pulse Ox O2 Del Method 08/31/24 15:14 36.8 C 55 L 15 162/84 H 96 Room Air 08/31/24 08:13 36.9 C 58 L 15 167/92 H 96 Room Air
[2024-08-31] MEDS: MoRPHine SULFATE 4 MG/ML 1 ML CARP\\VIAL IV PRN (16:16)
[2024-08-31] MEDS: ONDANSETRON INJ 2 MG/ML 2 ML VIAL IV PRN (16:16)
[2024-09-01 06:38] LABS: Basophils # (auto) 0.02 K/uL (0.00-0.20); Basophils % (auto) 0.2 %; Eosinophils # (auto) 0.06 K/uL (0.00-0.50); Eosinophils % (auto) 0.7 %; Hematocrit (blood only) 42.2 % (42.0-52.0); Hemoglobin 14.4 g/dl (14.0-18.0); Immature Granulocytes # (auto) 0.08 K/uL (0.01-0.20); Immature Granulocytes % (auto) 0.9 %; Lymphocytes # (auto) 1.08 K/uL (1.20-3.40); Lymphocytes % (auto) 12.4 %; Mean Corpuscular Hemoglobin 28.3 pg (25.0-34.0); Mean Corpuscular Hgb Conc 34.1 g/dL (32.0-36.0); Mean Corpuscular Volume 82.9 fL (80.0-100.0); Mean Platelet Volume 9.5 fL (9.4-12.4); Monocytes # (auto) 1.04 K/uL (0.11-0.59); Monocytes % (auto) 11.9 %; Neutrophils # (auto) 6.43 K/uL (1.40-6.50); Neutrophils % (auto) 73.9 %; Platelet Count 306 K/uL (130-400); RDW Standard Deviation 39.5 fL (36.4-46.3); Red Blood Count 5.09 M/uL (4.70-6.10); White Blood Count 8.71 K/ul (4.8-10.8)
[2024-09-01 09:00] LABS: BUN Creatinine Ratio 11.9 (10-20); Calcium 8.8 mg/dl (8.6-10.3); Creatinine Clr Calc Pharmacy 85.2 ml/min; Potassium 3.7 mmol/L (3.5-5.1)
--- NOTE | 2024-09-01 09:40 | Hospitalist Progress Note ---
Date of Service September 01, 2024 Assessment & Plan (1) Diverticulitis of colon with perforation: (2) Cystic duct calculus: (3) Right nephrolithiasis: (4) Hypertension: Plan Patient is a 44-year-old male who presented to the hospital with lower abdominal pain. CT abdomen pelvis shows acute sigmoid diverticulitis with microperforation manifested by clustered pneumoperitoneum. No bowel obstruction/abscess. 3 mm cystic duct stone present. Leukocytosis present on admission; resolved. Total bilirubin of 1.3; direct of 0.5; AST/ALT and ALP within normal limits Surgery on board; recommend to continue IV antibiotics. Diet advanced to clear liquid today. Stop iv fluids Pain control Discussed With patient regarding colonoscopy in 6 to 8 weeks; patient agreeable. Hypertensioncontinue on losartan and hydrochlorothiazide. Hold metoprolol given bradycardia Full code DVT prophylaxis SCDs Please note the above document was generated using voice recognition software. It may contain grammatical, syntax or spelling errors. Any formal questions or concerns about the content, text or information contained within the body of this dictation should be directly addressed to the provider for clarification Admission and Anticipated Discharge Date Admission Date: August 29, 2024 Subjective Patient seen and examined at bedside. He reports the pain has improved; afebrile overnight. Vital signs remained stable. Review of Systems Review of Systems: All systems reviewed & are unremarkable except as noted in Subjective Physical Exam Physical Exam: Constitutional: Alert, nontoxic HEENT: Mucous membranes moist. Lungs: Clear to auscultation, decreased, no wheezes rales or rhonchi CV: S1-S2, regular Abdomen: Tenderness present in left lower quadrant Extremities: No significant edema Neuro: No focal deficits Psych: Cooperative, normal mood Results & Data Results & Data Vital Signs (Past 12 Hours) Vital Signs Temp Pulse Resp BP Pulse Ox O2 Del Method 09/01/24 07:27 36.9 C 44 L 14 143/71 H 98 Room Air
--- NOTE | 2024-09-01 09:52 | Surgery Progress Note ---
Date of Service September 01, 2024 Assessment & Plan (1) Diverticulitis of colon with perforation: Plan: Clinically improving WBC normal with no fevers We will start clear liquids today. Would have low threshold for repeat CAT scan if he worsens as we advance diet Admission and Anticipated Discharge Date Admission Date: August 29, 2024 Subjective Patient seen. Had some considerable pain yesterday but this was relieved with a bowel movement. Overall he believes he is improving. No pain currently Physical Exam Constitutional: WD/WN, vitals as above no acute distress and not ill appearing Eyes: PERRL, conjunctivae normal, anicteric sclerae EOM intact bilaterally ENMT: external ear and nose normal, oropharynx normal Ears: no hearing impairment Neck: trachea midline, no thyromegaly Respiratory: normal respiratory effort; no respiratory distress and does not use accessory muscles Cardiovascular: Rate/Rhythm: regular rate and regular rhythm Gastrointestinal (Abdomen): Soft. Mild suprapubic tenderness. Improved from admission Skin: no rashes, warm and dry Psychiatric: Orientation: alert, oriented x 3 and cooperative Results & Data Vital Signs (Past 12 Hours) Vital Signs Temp Pulse Resp BP Pulse Ox O2 Del Method 09/01/24 09:46 55 L 14 96 Room Air 09/01/24 07:27 36.9 C 44 L 14 143/71 H 98 Room Air PG Care Time/CCT Total # of Minutes Spent Total Time Spent with Patient: Total time spent is greater than 50% in coordination of care (as documented) at patient's floor/unit and/or counseling patient: Coding Level of Care Code 53528 SUB INP/OBS CARE Diagnoses Diverticulitis of colon with perforation K57.20
--- NOTE | 2024-09-01 15:05 | Electrocardiogram Report ---
Test Reason : Blood Pressure : */* mmHG Vent. Rate : 56 BPM Atrial Rate : 56 BPM P-R Int : 148 ms QRS Dur : 98 ms QT Int : 430 ms P-R-T Axes : 41 49 -2 degrees QTcB Int : 414 ms Sinus bradycardia Inferior infarct , age undetermined Abnormal ECG When compared with ECG of 12-Dec-2020 00:05, Inferior infarct is now Present Confirmed by Gianfranco Langley ([id number]) on 09/01/2024 3:05:29 PM Referred By: REFERRED SELF Confirmed By: Gianfranco Langley
[2024-09-02 06:29] LABS: Basophils # (auto) 0.04 K/uL (0.00-0.20); Basophils % (auto) 0.4 %; Eosinophils # (auto) 0.08 K/uL (0.00-0.50); Eosinophils % (auto) 0.8 %; Hematocrit (blood only) 43.5 % (42.0-52.0); Immature Granulocytes # (auto) 0.07 K/uL (0.01-0.20); Immature Granulocytes % (auto) 0.7 %; Lymphocytes # (auto) 1.55 K/uL (1.20-3.40); Lymphocytes % (auto) 16.1 %; Mean Corpuscular Hemoglobin 28.1 pg (25.0-34.0); Mean Corpuscular Hgb Conc 34.5 g/dL (32.0-36.0); Mean Corpuscular Volume 81.6 fL (80.0-100.0); Mean Platelet Volume 9.6 fL (9.4-12.4); Monocytes # (auto) 0.98 K/uL (0.11-0.59); Monocytes % (auto) 10.2 %; Neutrophils # (auto) 6.89 K/uL (1.40-6.50); Neutrophils % (auto) 71.8 %; Platelet Count 370 K/uL (130-400); RDW Coefficient of Variation 13.1 % (11.5-14.5); RDW Standard Deviation 38.5 fL (36.4-46.3); Red Blood Count 5.33 M/uL (4.70-6.10); White Blood Count 9.61 K/ul (4.8-10.8)
[2024-09-02 06:48] LABS: BUN Creatinine Ratio 9.9 (10-20); Calcium 9.2 mg/dl (8.6-10.3); Creatinine Clr Calc Pharmacy 83.6 ml/min; Potassium 3.5 mmol/L (3.5-5.1)
--- NOTE | 2024-09-02 09:24 | Surgery Progress Note ---
Date of Service September 02, 2024 Assessment & Plan (1) Acute diverticulitis: Plan: He is improving with little pain at this point Is afebrile still without leukocytosis With this in the full liquids and see how he tolerates this If he continues to improve can give him a low fiber diet tomorrow with possible discharge tomorrow Admission and Anticipated Discharge Date Admission Date: August 29, 2024 Subjective Patient seen and examined. States his pain is improved. Afebrile. He is having bowel movements every 2 hours. Denies any nausea or vomiting. Review of Systems Constitutional: no fever and no chills Respiratory: no cough and no dyspnea Cardiovascular: no chest pain and no dyspnea on exertion Gastrointestinal: no abdominal pain, no nausea and no vomiting Genitourinary: no dysuria or no nocturia Integumentary: no acne, no skin ulcer and no erythema Neurologic: no gait abnormality, no radiating pain and no dizziness Psychiatric: no behavioral changes and no depression Hematologic / Lymphatic: no easy bleeding and no easy bruising Physical Exam Constitutional: WD/WN, vitals as above Respiratory: normal respiratory effort, lungs clear to auscultation Cardiovascular: RRR, no murmur, no edema Gastrointestinal (Abdomen): Inspection/Auscultation: abdomen normal to inspection; abdomen not distended Percussion/Palpation: + abdomen tender (Mild suprapubic) and abdomen soft; no guarding Musculoskeletal: no cyanosis or clubbing, extremities motor strength 5/5 Skin: no rashes, warm and dry Neurologic: PERRL, EOMI, accommodation nl, no face palsy, no dysarthria Psychiatric: A+Ox3, euthymic affect Results & Data Vital Signs (Past 12 Hours) Vital Signs Temp Pulse Resp BP Pulse Ox O2 Del Method 09/02/24 08:30 36.9 C 63 18 138/66 97 Room Air PG Care Time/CCT Total # of Minutes Spent Total Time Spent with Patient: Total time spent is greater than 50% in coordination of care (as documented) at patient's floor/unit and/or counseling patient: Coding Level of Care Code 07269 SUB INP/OBS CARE 10/21MIN Diagnoses Acute diverticulitis K57.92
--- NOTE | 2024-09-02 10:27 | Hospitalist Progress Note ---
Date of Service September 02, 2024 Assessment & Plan (1) Diverticulitis of colon with perforation: (2) Cystic duct calculus: (3) Right nephrolithiasis: (4) Hypertension: Plan Patient is a 44-year-old male who presented to the hospital with lower abdominal pain. CT abdomen pelvis shows acute sigmoid diverticulitis with microperforation manifested by clustered pneumoperitoneum. No bowel obstruction/abscess. 3 mm cystic duct stone present. Leukocytosis present on admission; resolved. Total bilirubin of 1.3; direct of 0.5; AST/ALT and ALP within normal limits Surgery on board; recommend to continue IV antibiotics. diet advanced to full liquid today; to be advance to low fibre if he continues to tolerate Pain control Discussed With patient regarding colonoscopy in 6 to 8 weeks; patient agreeable. C.diff negative Hypertensioncontinue on losartan and hydrochlorothiazide. Hold metoprolol given bradycardia Bradycardiasinus bradycardia at times; EKG reviewed; reviewed bradycardia with no evidence of heart block. Likely physiological and related with metoprolol use. Full code DVT prophylaxis SCDs Please note the above document was generated using voice recognition software. It may contain grammatical, syntax or spelling errors. Any formal questions or concerns about the content, text or information contained within the body of this dictation should be directly addressed to the provider for clarification Admission and Anticipated Discharge Date Admission Date: August 29, 2024 Subjective Patient seen and examined at bedside. Comfortable; not in distress. Denies fever, chills, chest pain, shortness of breath, abdominal pain or urinary symptoms. No significant overnight events Review of Systems Review of Systems: All systems reviewed & are unremarkable except as noted in Subjective Physical Exam Physical Exam: Constitutional: Alert, nontoxic HEENT: Mucous membranes moist. Lungs: Clear to auscultation, decreased, no wheezes rales or rhonchi CV: S1-S2, regular Abdomen: Tenderness present in left lower quadrant Extremities: No significant edema Neuro: No focal deficits Psych: Cooperative, normal mood Results & Data Results & Data Vital Signs (Past 12 Hours) Vital Signs Temp Pulse Resp BP Pulse Ox O2 Del Method 09/02/24 08:30 36.9 C 63 18 138/66 97 Room Air
--- NOTE | 2024-09-02 11:56 | Electrocardiogram Report ---
Test Reason : Blood Pressure : */* mmHG Vent. Rate : 50 BPM Atrial Rate : 50 BPM P-R Int : 140 ms QRS Dur : 94 ms QT Int : 452 ms P-R-T Axes : 53 33 19 degrees QTcB Int : 412 ms Sinus bradycardia Otherwise normal ECG When compared with ECG of 01-Sep-2024 09:14, No significant change was found Confirmed by Yuniel Michele ([id number]) on 09/02/2024 11:56:05 AM Referred By: REFERRED SELF Confirmed By: Yuniel Michele
[2024-09-02 15:00] VITALS: RESP 16
[2024-09-03 07:20] LABS: Hematocrit (blood only) 42.2 % (42.0-52.0); Hemoglobin 14.7 g/dl (14.0-18.0); Mean Corpuscular Hemoglobin 28.4 pg (25.0-34.0); Mean Corpuscular Hgb Conc 34.8 g/dL (32.0-36.0); Mean Corpuscular Volume 81.5 fL (80.0-100.0); Mean Platelet Volume 9.7 fL (9.4-12.4); Platelet Count 349 K/uL (130-400); RDW Standard Deviation 38.6 fL (36.4-46.3); Red Blood Count 5.18 M/uL (4.70-6.10)
[2024-09-03 07:37] LABS: BUN Creatinine Ratio 10.5 (10-20); Calcium 9.2 mg/dl (8.6-10.3); Creatinine Clr Calc Pharmacy 88.4 ml/min
[2024-09-03 07:50] LABS: Basophils # (auto) 0.04 K/uL (0.00-0.20); Basophils % (auto) 0.5 %; Eosinophils # (auto) 0.17 K/uL (0.00-0.50); Eosinophils % (auto) 2.3 %; Immature Granulocytes # (auto) 0.15 K/uL (0.01-0.20); Lymphocytes # (auto) 2.01 K/uL (1.20-3.40); Lymphocytes % (auto) 27.2 %; Monocytes # (auto) 0.89 K/uL (0.11-0.59); Neutrophils # (auto) 4.14 K/uL (1.40-6.50)
--- NOTE | 2024-09-03 09:04 | Surgery Progress Note ---
Date of Service September 03, 2024 Assessment & Plan (1) Acute diverticulitis: Plan: Advance to low fiber diet if he tolerates this he can be discharged later today He should be on a low fiber diet for the next 2 months Would give a total of 14 days of p.o. antibiotics once discharged He should follow-up in 6 to 8 weeks for a colonoscopy Dr. Roa as well about a month or so the need for elective colon resection Surgery will sign off at this time, please call with any questions Admission and Anticipated Discharge Date Admission Date: August 29, 2024 Subjective Patient seen and examined. Continues to improve. Afebrile. Tolerating full liquids. Review of Systems Constitutional: no fever and no chills Respiratory: no cough and no dyspnea Cardiovascular: no chest pain and no dyspnea on exertion Gastrointestinal: no abdominal pain, no nausea and no vomiting Genitourinary: no dysuria or no nocturia Integumentary: no acne, no skin ulcer and no erythema Neurologic: no gait abnormality, no radiating pain and no dizziness Psychiatric: no behavioral changes and no depression Hematologic / Lymphatic: no easy bleeding and no easy bruising Physical Exam Constitutional: WD/WN, vitals as above Respiratory: normal respiratory effort, lungs clear to auscultation Cardiovascular: RRR, no murmur, no edema Gastrointestinal (Abdomen): Inspection/Auscultation: abdomen normal to inspection; abdomen not distended Percussion/Palpation: + abdomen tender (Mild suprapubic) and abdomen soft; no guarding Musculoskeletal: no cyanosis or clubbing, extremities motor strength 5/5 Skin: no rashes, warm and dry Neurologic: PERRL, EOMI, accommodation nl, no face palsy, no dysarthria Psychiatric: A+Ox3, euthymic affect PG Care Time/CCT Total # of Minutes Spent Total Time Spent with Patient: Total time spent is greater than 50% in coordination of care (as documented) at patient's floor/unit and/or counseling patient: Coding Level of Care Code 82313 SUB INP/OBS CARE 10/21MIN Diagnoses Acute diverticulitis K57.92
[2024-09-03 09:16] VITALS: BP 150/77; PULSE 52; TEMP 98.1; O2SAT 96
--- NOTE | 2024-09-03 14:43 | Discharge Summary ---
Date of Service September 03, 2024 Admission HPI Per Admitting Provider Patient is a 44-year-old gentleman with previous history of diverticulosis and kidney stones. Presents to the emergency room with abdominal pain for the past 3 to 4 days. In the emergency room imaging was remarkable for diverticulitis with microperforation. Patient was referred to our service for further evaluation. Time my evaluation patient states he is starting to feel uncomfortable has not requested pain medicines prior to now but would appreciate some. He he states that he started noticing a sort of a more dull and aching abdominal pain on Wednesday. This is different than his usual pain he is experi enced with kidney stones in the past. Seem to kind of progress throughout the weekend and into Wednesday prompting him to seek attention today. Denies any fever or chills. No chest pain or shortness of breath. No nausea or vomiting. No bloody stools. No changes in his bladder habits. No swelling of hands arms legs or feet. He states that he has never had a colonoscopy. However, he was told he has diverticulosis based on previous CT of his abdomen. He is compliant with his blood pressure medications. Does not smoke. Rarely uses alcohol. States his mother has a history of diverticulosis and diverticulitis. Admission Exam Per Admitting Provider Constitutional: Alert, ill in appearance, nontoxic HEENT: Mucous membranes moist. Sclera clear Neck: Soft, no adenopathy Lungs: Clear to auscultation, decreased, no wheezes rales or rhonchi CV: S1-S2, regular Abdomen: Firm, diffuse tenderness left lower quadrant the greatest tenderness with some guarding, some rebound Extremities: No significant edema Musculoskeletal: No significant joint tenderness Neuro: No focal deficits Psych: Cooperative, normal mood Principal Diagnosis (1) Diverticulitis of colon with perforation: (2) Cystic duct calculus: (3) Right nephrolithiasis: (4) Hypertension: Discharge Exam Constitutional: Alert, nontoxic HEENT: Mucous membranes moist. Lungs: Clear to auscultation, decreased, no wheezes rales or rhonchi CV: S1-S2, regular Abdomen: soft, non-tender Extremities: No significant edema Neuro: No focal deficits Psych: Cooperative, normal mood Discharge Data Allergies Allergy/AdvReac Type Severity Reaction Status Date / Time No Known Allergies AdvReac Unknown Verified 12/11/20 23:52 Consultations 08/29/24 14:20 Consult General Surgery Stat 08/29/24 15:09 ED Decision to Admit Stat Ordered Studies 08/29/24 12:47 CT abd pelvis IV con only Stat Hospital Course (1) Diverticulitis of colon with perforation: (2) Cystic duct calculus: (3) Right nephrolithiasis: (4) Hypertension: Plan Patient is a 44-year-old male who presented to the hospital with lower abdominal pain. CT abdomen pelvis shows acute sigmoid diverticulitis with microperforation manifested by clustered pneumoperitoneum. No bowel obstruction/abscess. 3 mm cystic duct stone present. Leukocytosis present on admission; resolved later in the hospitalization. Total bilirubin of 1.3; direct of 0.5; AST/ALT and ALP within normal limits Patient was admitted to medical floor; started on bowel rest, IV fluids, pain control. Surgery was consulted for comanagement. Over the course of the hospitalization; patient reported improvement in abdominal pain and discomfort. He was able to tolerate low fiber diet at the time of the discharge. At discharge, he was given 14 days more of Augmentin as recommended by surgery. Patient was noted to be sinus bradycardic during the hospitalization; metoprolol was discontinued at the time of the discharge. Patient to follow-up with PCP; and have colonoscopy in 6 to 8 weeks time. Please note the above document was generated using voice recognition software. It may contain grammatical, syntax or spelling errors. Any formal questions or concerns about the content, text or information contained within the body of this dictation should be directly addressed to the provider for clarification Total Time Total Time Spent Total Time Spent (In Minutes): 34 Total Time Includes: Examination of the Patient, Discharge Planning, Medication Reconciliation, Communication With Other Providers and Other Discharge Plan Discharge Items Patient Disposition: Home - Self-Care Reason For Visit: DIVERTICULITIS Discharge Diagnosis: Sigmoid diverticulitis Activity: Resume your previous activity Non-emergency contact: Primary Care Provider Call non-emergency contact if: you have any medication questions, your pain is not controlled, your pain is worsening, you have a fever and your temperature is above 101.5 Follow-up/Referrals: Jose M Roa DO [Surgeon] - Art Baum MD [Primary Care Provider] - 09/06/24 11:20 am (Date & Time 09/06/2024 11:20 AM Provider Art Baum MD Department Family Medicine [facility] ) Diet: Low Fiber Addtl Attending Provider Instructions: You were admitted to the hospital with acute sigmoid diverticulitis. You underwent treatment with IV antibiotics during the hospitalization. You are prescribed antibiotic for 14 more days to complete the antibiotic course. Follow-up with your primary care doctor. Metoprolol has been discontinued during the hospitalization as your heart rate was on the lower side. Follow-up with Dr. Roa( Surgery) in about 1 month time. Continue on a low fiber diet for the next 6-8 weeks. Then you may slowly re- introduce fiber back into your diet It is recommended you follow up with a tree inspector once this acute episode of inflammation has settled and schedule an outpatient colonoscopy Pending Studies at Discharge: No Stand-Alone Forms: My [facility], Smoking Cessation Medications and DC Order Prescriptions: New ibuprofen 600 mg Tablet 600 mg PO Q6H PRN (Reason: pain) Qty: 20 0RF amoxicillin-pot clavulanate 875-125 mg tablet 1 tab PO BID 14 Days Qty: 28 0RF Continued aspirin 325 mg Tablet,Delayed Release (Dr/Ec) 325 mg PO DAILY PRN (Reason: Pain) Rx Instructions: Unable to verify OTC meds at this date/time. cholecalciferol (vitamin D3) [Vitamin D3] 25 mcg (1,000 unit) Capsule 1,000 unit PO DAILY Rx Instructions: Unable to verify OTC meds at this date/time. omeprazole magnesium [Prilosec OTC] 20 mg Tablet,Delayed Release (Dr/Ec) 20 mg PO DAILY Rx Instructions: Unable to verify OTC meds at this date/time. Probiotic 10 billion cell Capsule 10,000 mmu cells PO DAILY Rx Instructions: Unable to verify OTC meds at this date/time. hydrochlorothiazide 25 mg tablet 25 mg PO DAILY losartan 100 mg tablet 100 mg PO DAILY Discontinued metoprolol succinate 25 mg tablet extended release 24 hr 25 mg PO DAILY Discharge Orders: Discharge Order (Routine); Ordered 09/03/24 Ordered By: Otf Zendejas/Other Patient Handouts: Low-Fiber Diet, Diverticulitis Dc Admission Data Admit Date/Time: 08/29/24 15:29 Attending Provider: Otf Moore Admit Provider: Derik Diaz Primary Care Provider: Art Baum Other Providers: Jose M Roa; Derik Diaz Other Interventions: Discharge Summary Assessment (RN) Last Done: 09/03/24 13:36
== END 2024-09-03 13:56 | disposition home or self-care (01) | DRG 392 ==
LOC: ED 10:30 → EDINP 15:29 → SUATTDRO 15:29 → 3W 17:24